=== PATIENT | male | born 1985 | race African-American/Black ===

== ENCOUNTER 2019-07-06 18:06 | Emergency (ER) | payer OTHER ==
[~2019-07-06] VITALS: Ht 175.3 cm; Wt 82.6 kg
[2019-07-06] MEDS ORDERED: BACTRIM DS TAB1 EACH PO (18:44)
[2019-07-06] MEDS ORDERED: HIBICLENS118 ML TOP (18:44)
[2019-07-06 20:13] VITALS: BP 132/88
== END 2019-07-06 20:14 | disposition home or self-care (01) ==
LOC: ER 18:06
DX: L02.416 Cutaneous abscess of left lower limb (principal); L02.415 Cutaneous abscess of right lower limb; L02.414 Cutaneous abscess of left upper limb; L02.413 Cutaneous abscess of right upper limb; L02.01 Cutaneous abscess of face; F15.10 Other stimulant abuse, uncomplicated; F17.200 Nicotine dependence, unspecified, uncomplicated; Z88.8 Allergy status to other drugs, medicaments and biological substances; Z86.14 Personal history of Methicillin resistant Staphylococcus aureus infection

== ENCOUNTER 2019-09-16 15:42 | Emergency (ER) | payer OTHER ==
[~2019-09-16] VITALS: Ht 175.3 cm; Wt 84.8 kg
[~2019-09-16 15:42] MED LIST: BACTRIM DS TAB1 EACH PO; HIBICLENS118 ML TOP
[2019-09-16 15:45] VITALS: BP 149/89
[2019-09-16] MEDS ORDERED: BACTRIM DS TAB1 EACH PO (15:59)
[2019-09-16] MEDS ORDERED: HIBICLENS118 ML TOP (15:59)
== END 2019-09-16 16:12 | disposition home or self-care (01) ==
LOC: ER 15:42
DX: L02.01 Cutaneous abscess of face (principal); Z76.0 Encounter for issue of repeat prescription; F17.210 Nicotine dependence, cigarettes, uncomplicated; Z88.8 Allergy status to other drugs, medicaments and biological substances